=== PATIENT | female | born 1995 | race African-American/Black ===

== ENCOUNTER 2021-04-26 04:25 | Emergency (ER) | payer OTHER ==
[~2021-04-26] VITALS: Ht 167.6 cm; Wt 93.4 kg
[2021-04-26] MEDS ORDERED: PROAIR HFA8.5 GM INH (04:54)
[2021-04-26 05:52] VITALS: BP 120/78
== END 2021-04-26 05:55 | disposition home or self-care (01) ==
LOC: ER 04:25
DX: J45.901 Unspecified asthma with (acute) exacerbation (principal)